=== PATIENT | male | born 1990 | race Two or more races ===

== ENCOUNTER 2021-08-08 10:44 | Emergency (ER) | payer SELFPAY ==
[~2021-08-08] VITALS: Ht 170.2 cm; Wt 70.8 kg
[2021-08-08 10:51] VITALS: BP 134/98
--- NOTE | 2021-08-08 10:56 | NUR ---
Pt ambulated to bed 04 with steady/even gait.
--- NOTE | 2021-08-08 10:59 | NUR ---
RAD AT BEDSIDE
--- NOTE | 2021-08-08 10:59 | NUR ---
31 Y/O MALE BIB SELF C/O SOB, STATED THAT HE'S "BREATHING THROUGH A STRAW" SINCE YESTERDAY, SATTING 93% IN TRIAGE, IN BED SATTING 97% ON ROOM AIR. NOTED WITH PRODUCTIVE COUGH WITH CLEAR EXUDATE. DENIES ANY N/V/D, CHANGE IN LOC. CHEST PAIN 4/10 SINCE YESTERDAY, PRESSURE WHEEZING NOTED ON EXHALATION. NKA PMH: ASTHMA A CHILD
[2021-08-08] MEDS ORDERED: predniSONE 20 MG TAB PO ONE (11:25)
[2021-08-08] MEDS ORDERED: ALBUTEROL SULFATE/IPRATROPIU 3 ML SOL IH ONE (11:25)
--- NOTE | 2021-08-08 11:33 | NUR ---
RT AT BEDSIDE FOR BREATHING TREATMENT
[2021-08-08] MEDS ORDERED: ALBU0.0912 IH (11:43)
[2021-08-08] MEDS ORDERED: PRED20TA5 PO (11:43)
[2021-08-08 12:14] VITALS: BP 134/98
--- NOTE | 2021-08-08 12:15 | NUR ---
Patient discharged with v/s stable. Written and verbal after care instructions ABOUT ASTHMA ATTACK, URI given and explained. Patient alert, oriented and verbalized understanding of instructions. Ambulatory with steady gait. All questions addressed prior to discharge. ID band removed. Patient advised to follow up with PMD. Rx of VENTOLIN, PREDNISONE given. Patient educated on indication of medication including possible reaction and side effects. Opportunity to ask questions provided and answered.
== END 2021-08-08 12:15 | disposition home or self-care (01) ==
LOC: MED 10:44
DX: J06.9 Acute upper respiratory infection, unspecified (principal); J45.909 Unspecified asthma, uncomplicated; F12.90 Cannabis use, unspecified, uncomplicated; Z79.899 Other long term (current) drug therapy
CPT/HCPCS: 71045; 93005; 94640; 99283; J7512